=== PATIENT | female | born 1985 | race Caucasian/White ===

== ENCOUNTER 2018-12-23 21:36 | Outpatient (CLI) | payer OTHER ==
[2018-12-23] MEDS ORDERED: ASPIRIN81 M1 PO (22:07)
[2018-12-23] MEDS ORDERED: PRENATAL TABLE1 EAC1 PO (22:07)
== END 2018-12-24 10:23 | disposition home or self-care (01) ==
LOC: OBS/DEL 21:36
DX: O26.893 Other specified pregnancy related conditions, third trimester (principal); K64.8 Other hemorrhoids; Z34.83 Encounter for supervision of other normal pregnancy, third trimester

== ENCOUNTER 2019-01-30 16:42 | Inpatient (IN) | payer OTHER ==
[~2019-01-30] VITALS: Ht 149.9 cm; Wt 167.0 kg
[~2019-01-30 16:42] MED LIST: ASPIRIN81 M1 PO; PRENATAL TABLE1 EAC1 PO
== END 2019-02-02 16:38 | disposition home or self-care (01) | DRG 788 ==
LOC: OB/GYN 16:42 → LDR 16:42 → OB/GYN 21:52
PROVIDERS: ADMIT Obstetrics & Gynecology
PROC: 4A1HXCZ Monitoring of Products of Conception, Cardiac Rate, External Approach (ICD-10-PCS; 2019-01-30)
PROC: 10D00Z1 Extraction of Products of Conception, Low, Open Approach (ICD-10-PCS; principal; 2019-01-30 17:00)
DX: O82 Encounter for cesarean delivery without indication (principal); O64.8XX0 Obstructed labor due to other malposition and malpresentation, not applicable or unspecified; Z3A.37 37 weeks gestation of pregnancy; Z37.0 Single live birth